=== PATIENT | female | born 1965 | race Caucasian/White ===

== ENCOUNTER → 2020-04-28 | Outpatient (CLI) | payer OTHER ==
[~2020-04-28] MED LIST: BREO ELLIPTA 11 EACH INH; CRESTOR 10 MG T10 MG PO; FLEXERIL 10 MG10 MG PO; GLUCOPHAGE500 MG PO; IPRAT-ALBUT 0.5-3 ML INH; KLONOPIN TAB 00.5 MG PO; KLOR-CON M2020 MEQ PO; LASIX80 MG PO; LEVAQUIN500 MG PO; LEVOFLOXACIN500 MG PO; MEDROL DOSEPAK 24 MG PO; MEDROL4 MG PO; NORCO 10-325 T1 EACH PO; PREDNISONE 20 M20 MG PO; PREDNISONE10 M1 PO; PREDNISONE20 MG PO; PRILOSEC OTC20 MG PO; PROVENTIL HFA 61 INH INH; SENOKOT8.6 MG PO; SPIRIVA RESPIMAT4 GM INH; SYNTHROID 88 M88 MCG PO; TESSALON PERLE100 MG PO; VENTOLIN HFA 66.7 GM INH; VITAMIN D-32000 UNIT PO; VITAMIN D33000 UNIT PO; VOLTAREN100 GM TP; ZYRTEC10 M3 PO; ZYRTEC10 MG PO
== END ==
LOC: EXRD 15:39
DX: R05 Cough (principal); R06.00 Dyspnea, unspecified; R09.89 Other specified symptoms and signs involving the circulatory and respiratory systems; R06.2 Wheezing; R91.1 Solitary pulmonary nodule
CPT/HCPCS: 71046

== ENCOUNTER 2020-07-04 10:19 | Emergency (ER) | payer OTHER ==
[2020-07-04 11:04] LABS: HEMOGLOBIN 13.2 gm/dl (12.3-15.3); RED BLOOD COUNT 5.25 M/UL (4.00-5.10); WHITE BLOOD COUNT 7.2 K/UL (4.5-11.0)
[2020-07-04 12:35] LABS: BUN/CREATININE RATIO 14 (0-10)
== END 2020-07-04 20:29 | disposition left against medical advice (07) ==
LOC: ER1 10:19
PROVIDERS: Student in an Organized Health Care Education/Training Program
DX: G93.89 Other specified disorders of brain (principal); Z90.710 Acquired absence of both cervix and uterus; J44.9 Chronic obstructive pulmonary disease, unspecified; Z20.822 Contact with and (suspected) exposure to COVID-19
CPT/HCPCS: 0240U; 36600; 70450; 71045; 80053; 81001; 82550; 82553; 82803; 83605; 83735; 83874; 83880; 84100; 84484; 85025; 85610; 85730; 93005; 96374; 99284; J1100